=== PATIENT | male | born 1980 | race Caucasian/White ===

== ENCOUNTER 2023-03-11 10:54 | Inpatient (IN) | payer SELFPAY ==
[2023-03-11] VITALS (99 sets, daily range): BP systolic 118–244; BP diastolic 69–155; PULSE 74–110; RESP 0–29; TEMP 36.4–36.8; O2SAT 92–100; BMI 37.5
--- NOTE | 2023-03-11 11:19 | CT_ITS ---
WS: [id number] CT HEAD TECHNIQUE: Noncontrast CT of the head obtained from the skullbase to the vertex. CLINICAL INFORMATION: ams COMPARISON: None. DLP: 1143.[address] scans at [facility] use at least one of these dose optimization techniques: automated e xposure control; mA and/or kV adjustment per patient size (includes targeted exams where dose is matc hed to clinical indication); or iterative reconstruction. FINDINGS: No evidence of intracranial hemorrhage. Bilateral subcortical low-attenuation change in the parasagittal occipital white matter compatible with posterior reversible encephalopathy syndrome con sidering hypertensive symptoms. No significant mass effect or midline shift. No hydrocephalus. Mild mucosal thickening with a small amount of fluid in the ethmoid air cells. Visualized paranasal s inuses are otherwise well aerated. Small retention cyst LEFT maxillary sinus. Mastoid air cells are w ell aerated. Normal posterior nasopharynx. IMPRESSION: 1. Bilateral occipital subcortical low-attenuation change compatible with posterior reversible encep halopathy syndrome considering hypertension. Recommend follow-up with CT or MRI to ensure resolution. 2. No evidence of intracranial hemorrhage. 3. Mild ethmoid sinusitis. Notified Bennie Zacarias DO at 03/11/2023 11:58 AM.
--- NOTE | 2023-03-11 11:19 | XRR_ITS ---
PROCEDURE INFORMATION: Exam: XR Chest Exam date and time: 03/11/2023 11:35 AM Age: 42 years old Clinical indication: Patient HX: AMS. Cough. PT states he is unable to see.No history of trauma or recent surgery is provided. TECHNIQUE: Imaging protocol: Radiologic exam of the chest. 1image(s) are provided. Views: 1 view. COMPARISON: No relevant prior studies available. FINDINGS: Lungs: No lobar consolidation is appreciated. Pleural spaces: No pneumothorax or significant pleural effusion is appreciated. Heart/Mediastinum: The cardiomediastinal silhouette is upper normal. No cardiac decompensation is appreciated. Diaphragm: The hemidiaphragms are symmetric. Bones/joints: Osseous alignment is maintained.No displaced fracture or dislocation is appreciated. Soft tissues: No radiopaque foreign body or subcutaneous emphysema is appreciated. XR/XR chest 1V portable [id number] IMPRESSION: No lobar consolidation is appreciated.No acute cardiopulmonary changes are appreciated.
--- NOTE | 2023-03-11 11:21 | ECG_ITS ---
[facility] Test Date: 2023-03-11 Pat Name: Aleks Andre Sr Department: Room: Gender: Male [employer]: : 1980 Requested By: Bennie Zacarias Order Number: [id number] Kaitlin MD: Jeremi Vega M.D. Measurements Intervals Sherman Rate: 96 P: 45 WI: 124 QRS: 38 QRSD: 86 T: 64 QT: 374 QTc: 474 Interpretive Statements SINUS RHYTHM WITH OCCASIONAL VENTRICULAR PREMATURE COMPLEXES NONSPECIFIC T-WAVE ABNORMALITY No previous ECG available for comparison Electronically Signed On 03-11-2023 12:13:19 CDT by Jeremi Vega M.D. [id number]
--- NOTE | 2023-03-11 11:22 | ED_ITS ---
HPI - Altered Mental Status General: Chief Complaint: Altered Mental Status Stated Complaint: ams Time Seen by Provider: 03/11/23 11:01 Source: patient and EMS History of Present Illness: This patient provides limited information Kamryn but begins to open up more as we interact. He was transported by EMS from his home this morning. Allegedly when the children at home called EMS. He was found on the floor acting confused. He was initially somewhat reluctant to go EMS but they were able to coax him into coming to the hospital. He states to me that he has had body aches and chills and been in bed most of the weekend. He denies any known exposure to infectious disease. He states that he lives alone and shares custody of his 2 school-aged children with their mother. He also states that for some reason he cannot seem to see well right now. He denies any falls or head trauma. He states that he does feel depressed at times and feels like he cannot get out of bed on the weekends. He states that he has considered and thought about harming himself but has no specific plan and has not thought about that in the last few days. He denies alcohol. He takes no daily medications. He states he has history of using marijuana and sometimes uses on a daily basis. He states he has never been treated for mental health illness. He has no history of cardiovascular disease. He denies nausea vomiting diarrhea. He states he is thirsty. Associated symptoms: Reports depression Review of Systems Const: Reports: fever(s) and chills Eyes: Reports: change in vision ENMT: Denies: throat pain, odynophagia, nasal discharge or nasal congestion Card: Denies: chest pain, palpitations, irregular heart rhythm, edema, syncope or pre-syncope Resp: Denies: dyspnea, productive cough or non-productive cough GI: Denies: abdominal pain, nausea, vomiting or diarrhea : Denies: flank pain, difficulty urinating, dysuria or urinary frequency Skin/Breast: Denies: rash Neuro: Denies: headache(s), numbness in extremities or weakness in extremities Psych: Reports: depression, sleeping more, hopelessness and loss of interest Physical Exam Narrative: The patient is an overweight male lying comfortably in bed asking for something to drink. He has spontaneous eye opening and interacts in a very low voice somewhat contracted affect. Const: COMMON NORMALS: alert GENERAL APPEARANCE: cooperative NUTRITIONAL APPEARANCE: obese and overweight HENMT: COMMON NORMALS: normocephalic, atraumatic, Normal nasal mucous membran es and turbinates present and oropharynx normal HEAD & SCALP: normocephalic and atraumatic FACE & SINUS: normal facial exam and face symmetric NOSE: Normal nasal mucous membranes and turbinates present and Abnormal mucous membranes and turbinates present Eye: COMMON NORMALS: Equal, round and reactive pupils present, EOMs intact bilaterally and conjunctivae normal GENERAL EYE: appearance normal, both eyes and all related structures CONJUNCTIVA: Yes conjunctivae normal PUPIL: Yes Equal, round and reactive pupils present Neck/C-Spine: COMMON NORMALS: full ROM, no lymphadenopathy, no JVD and No carotid bruits Chest: COMMONS NORMALS: normal inspection of the chest Resp: COMMON NORMALS: normal respiratory effort and No use of accessory muscles EFFORT & INSPECTION: Yes able to speak in complete sentences and Yes symmetric chest movement AUSCULTATION: crackles Laterality: right Cardio: COMMON NORMALS: no JVD, regular rate, regular rhythm, No murmurs present (Cardio) and Peripheral pulses 2+ throughout RATE: regular rate RHYTHM: regular rhythm PERIPHERAL PULSES: Peripheral pulses 2+ throughout GI: COMMON NORMALS: Normal to inspection, nondistended, normoactive bowel mary nds present, Soft to palpation and non-tender PALPATION: Yes Soft to palp ation : COMMON NORMALS: Yes no CVA tenderness BLADDER/KIDNEY EXAM: Yes no CVA tenderness Back/Pelvis: COMMON NORMALS: no CVA tenderness, thoracic and lumbar spine normal to inspection, no thoracic nor lumbar tenderness and straight leg raise negative bilaterally Extremity: COMMON NORMALS: normal to inspection, full ROM, capillary refill normal, no calf tenderness and no pedal edema Neuro: COMMON NORMALS: moves all extremities, no focal motor deficits and no sensory deficits noted SENSORIUM/ORIENTATION: Yes alert SPEECH: speech normal Psych: COMMON NORMALS: mental status grossly normal SPEECH: Yes slow and Yes soft MOOD & AFFECT: Yes depressed mood and Yes constricted affect THOUGHT PROCESS: Circumstantial thought process present THOUGHT CONTENT: Yes Suicidality present INSIGHT: Fair insight present (Psych) JUDGEMENT: Fair judgement present (Psych) Skin: COMMON NORMALS: no rashes or lesions noted and no wounds GENERAL SKIN EXAM: no rashes or lesions noted Course Reevaluation(s): Reevaluation #1: We are initiating a nicardipine drip to help lower his blood pressure to treat his primary condition. The remainder of his work-up is ongoing to ensure that there is no other contributing comorbidities at this time. Time: 12:10 Consultations: Consultation #1: Discussed with Dr. Velázquez who will act as a events solutions consultant on the case. Time: 11:59 Vital Signs: Vital signs: Vital Signs Temperature 97.6 F 03/11/23 10:56 Pulse Rate 104 H 03/11/23 11:15 Respiratory Rate 20 H 03/11/23 11:15 Blood Pressure 197/146 03/11/23 11:15 Pulse Oximetry 97 03/11/23 11:15 Oxygen Delivery Me thod Room Air 03/11/23 11:15 MDM - Altered Mental Status Medical Decision Making This patient came from home with a history of being found confused on the floor of his home. On initial evaluation he complains of deviant diminished vision. He did have crackles in the left lung base but no other focal findings on his clinical examination. He is affect is constricted with depressive features and admitted depression without clear active suicidality. We will initiate work-up to ensure that there is no organic cause of his current presentation. My initial suspicion is this is severe depression but we certainly need to do due diligence to ensure that there is no evidence of toxic metabolic effects, stroke etc. infection as well as PRES syndrome with his elevated BP. CT scan confirmed suspicion of increased posterior cerebral edema consistent with press syndrome. We will initiate nicardipine drip and plan on ICU admission. Discussed with hospitalist as well as neurologist. Lab Data 03/11/23 11:00 03/11/23 11:00 Laboratory Results WBC 22.30 10^3/uL (3.29-11.43) H 03/11/23 11:00 RBC 6.34 10^6/uL (3.85-5.65) H 03/11/23 11:00 Hgb 19.30 g/dL (11.27-16.99) H 03/11/23 11:00 Hct 57.1 % (37-53) H 03/11/23 11:00 MCV 90.1 fl (82-101) 03/11/23 11:00 MCH 30.4 pg (27-33) 03/11/23 11:00 MCHC 33.8 g/dL (30-55) 03/11/23 11:00 RDW 13.0 % (12.1-15.1) 03/11/23 11:00 Plt Count 304 10^3/cmm (157-399) 03/11/23 11:00 MPV 11.3 fL (7.4-10.4) H 03/11/23 11:00 Neut % (Auto) 88.0 % 03/11/23 11:00 Lymph % (Auto) 7.7 % 03/11/23 11:00 [place] % (Auto) 1.9 % 03/11/23 11:00 Eos % (Auto) 0.3 % 03/11/23 11:00 Baso % (Auto) 0.5 % 03/11/23 11:00 Neut # (Auto) 19.63 10^3/uL (1.8-7.7) H 03/11/23 11:00 Lymph # (Auto) 1.7 10^3/uL (0.8-4.8) 03/11/23 11:00 [place] # (Auto) 0.4 10^3/uL (0.2-0.9) 03/11/23 11:00 Eos # (Auto) 0.1 10^3/uL (0.0-0.8) 03/11/23 11:00 Baso # (Auto) 0.1 10^3/uL (0.0-0.1) 03/11/23 11:00 Nucleated RBC % (auto) 0 % 03/11/23 11:00 Nucleated RBCs # 0.0 /100WBC 03/11/23 11:00 Sodium 135 mmol/L (136-145) L 03/11/23 11:00 Potassium 3.9 mmol/L (3.5-5.1) 03/11/23 11:00 Chloride 98 mmol/L (98-107) 03/11/23 11:00 Carbon Dioxide 18 mmol/L (22-29) L 03/11/23 11:00 Anion Gap 22.9 (5-19) H 03/11/23 11:00 BUN 11 mg/dL (6-20) 03/11/23 11:00 Creatinine 1.2 mg/dL (0.7-1.2) 03/11/23 11:00 GFR Calculation 67.1 mL/min (90-130) L 03/11/23 11:00 Glucose 216 mg/dL (65-115) H 03/11/23 11:00 Calculated Osmolality 286 mOsm/kg (285-295) 03/11/23 11:00 Calcium 9.6 mg/dL (8.5-10.5) 03/11/23 11:00 Total Bilirubin 0.5 mg/dL (0.15-1.2) 03/11/23 11:00 AST 69 U/L (0-40) H 03/11/23 11:00 ALT 94 U/L (0-41) H 03/11/23 11:00 Alkaline Phosphatase 101 U/L (40-130) 03/11/23 11:00 Total Protein 7.2 g/dL (6.6-8.7) 03/11/23 11:00 Albumin 4.8 g/dL (3.5-5.2) 03/11/23 11:00 Globulin 2.4 g/dL (1.3-4.6) 03/11/23 11:00 TSH 1.44 uIU/mL (0.27-4.20) 03/11/23 11:00 Salicylates 4.2 mg/dL (3-10) 03/11/23 11:00 Acetaminophen < 5.0 ug/mL (10-30) L 03/11/23 11:00 Ethyl Alcohol < 10 mg/dL (0-10) 03/11/23 11:00 All radiology interpretation(s) finalized by discharge EKG Data EKG 1: I personally reviewed and interpreted this EKG as follows: Interpretation: Resting EKG reveals ventricular rate of 96 bpm. Consistent with normal sinus rhythm. Occasional atrial premature contraction. ID interval, QRS duration, co rrected QT interval normal. [place] normal. No acute ST-T wave changes noted at this time. No prior tracing for comparison Discharge Plan Discharge Patient Disposition: Admitted As Inpatient Clinical Impression: PRES (posterior reversible encephalopathy syndrome) Condition: Stable Coding Level of Care Code ED Yarn Twister for Francois Ruiz
[2023-03-11 11:50] LABS: Basophils # 0.1 10^3/uL (0.0-0.1); Basophils % 0.5 %; Eosinophils # 0.1 10^3/uL (0.0-0.8); Eosinophils % 0.3 %; Hematocrit 57.1 % (37-53); Lymphocytes # 1.7 10^3/uL (0.8-4.8); Lymphocytes % 7.7 %; Mean Corpuscular HGB Conc 33.8 g/dL (30-55); Mean Corpuscular Hemoglobin 30.4 pg (27-33); Mean Corpuscular Volume 90.1 fl (82-101); Mean Platelet Volume 11.3 fL (7.4-10.4); Monocytes # 0.4 10^3/uL (0.2-0.9); Monocytes % 1.9 %; Neutrophils # 19.63 10^3/uL (1.8-7.7); Nucleated Red Blood Cells % 0 %; Platelet Count 304 10^3/cmm (157-399); Red Blood Count 6.34 10^6/uL (3.85-5.65)
[2023-03-11] MEDS: sodium chloride 0.9% 1,000 ML 999 ML IV (11:53)
[2023-03-11 12:07] LABS: Acetaminophen < 5.0 ug/mL (10-30); Alanine Aminotransferase 94 U/L (0-41); Albumin Level 4.8 g/dL (3.5-5.2); Alcohol Level < 10 mg/dL (0-10); Alkaline Phosphatase 101 U/L (40-130); Anion Gap 22.9 (5-19); Aspartate Amino Transferase 69 U/L (0-40); Blood Urea Nitrogen 11 mg/dL (6-20); Calcium 9.6 mg/dL (8.5-10.5); Carbon Dioxide 18 mmol/L (22-29); Chloride 98 mmol/L (98-107); Globulin 2.4 g/dL (1.3-4.6); Glomerular Filtration Rate 67.1 mL/min (90-130); Glucose 216 mg/dL (65-115); Osmolality Calculated 286 mOsm/kg (285-295); Potassium 3.9 mmol/L (3.5-5.1); Salicylate 4.2 mg/dL (3-10); Sodium 135 mmol/L (136-145); Thyroid Stimulating Hormone 1.44 uIU/mL (0.27-4.20); Total Bilirubin 0.5 mg/dL (0.15-1.2); Total Protein 7.2 g/dL (6.6-8.7)
--- NOTE | 2023-03-11 12:08 | MR_ITS ---
WS: [id number] MRI BRAIN WITHOUT CONTRAST HISTORY: PRES COMPARISON: Noncontrast CT head 03/11/2023 TECHNIQUE: Diffusion imaging, multiplanar T1, T2 and FLAIR imaging obtained. Diffusion imaging is normal. Bilateral cortical and subcortical T2 and FLAIR signal hyperintensities are reidentified predominantl y in the occipital and parietal lobes but also extending into the cerebellum bilaterally with multipl e patchy white matter lesions. No associated hemorrhage or diffusion abnormalities. Ventricles and extra-axial spaces are normal. No inferior displacement of cerebellar tonsils. The sella turcica and pituitary gland are unremarkabl e. Dural venous sinuses and [place] demonstrate no abnormality on this unenhanced studies. Paranasal sinuses: Very tiny air-fluid levels in the maxillary sinuses. Otherwise sinuses are clear. Mastoid air cells: Normal. Calvarium and scalp: Intact. IMPRESSION: 1. No diffusion abnormality. 2. Diffuse bilateral parieto-occipital and cerebellar hyperintensities. Consistent with acute hypert ensive encephalopathy/PRES. corresponds with the CT findings. 3. No hemorrhage.
--- NOTE | 2023-03-11 12:08 | PC.PHAR ---
pt states he takes no rx medications-pt states the only otc med hes been taking is excedrin migraine prn pt states took about 8 tabs over the weekend
[2023-03-11] MEDS: nicardipine 20 MG/200 ML PREMIX 50 MG IV (12:20)
[2023-03-11 12:23] LABS: Influenza A by IFA negative (Negative); Influenza B by IFA negative (Negative); Lactic Sepsis W/Reflex 3.3 mmol/L (0.5-2.2); SARS Covid-2 Antigen negative (Negative)
[2023-03-11 12:26] LABS: ABG PCO2 36.4 mmHg (35-45); ABG PH Result 7.39 (7.35-7.45); Alveolar-Arterial Oxygen Gradi 4.7 mmHg (5-10); Arterial Blood Gas Hematocrit 56.9 % (42-52); Base Excess ABG -2.4 mmol/L (-2.0-2.0); Blood Gas Allen Test Pos; Blood Gas Operator Identificat CAK; Blood Gas Sample Site Radial, left; Blood Gas Sample Type Arterial; HCO3 ABG 21.9 mmol/L (22-26); HGB O2 Sat 93.5 % (95-100); Ionized Calcium Level - ABG 1.2 mmol/L (1.1-1.4); Methemoglobin 0.3 % (0.4-1.5); Oxygen Device ROOM AIR; Oxygen Saturation ABG 94.7; PO2 ABG 68.9 mmHg (80.0-100.0); Potassium Level - ABG 3.7 mmol/L (3.5-5.0); Total Hemoglobin 18.6 g/dL (14-18)
[2023-03-11] MEDS: carvedilol 6.25 mg Tablet PO ×2 (12:27→17:50)
[2023-03-11] MEDS: amlodipine 10 mg Tablet PO (12:27)
[2023-03-11 12:55] LABS: Procalcitonin 0.16 ng/mL (0-0.5)
[2023-03-11] MEDS: hyDRALAzine 50 mg Tablet PO ×2 (13:22→20:45)
[2023-03-11 13:44] LABS: Reflex Lactate Order REFLEX LACTIC ORDERD
--- NOTE | 2023-03-11 14:01 | PC.NURSE ---
Addendum entered by Leela Lockwood RN 03/11/23 14:02: TRANSFER WAS AT 1330 Original Note: PATIENT TRANSPORTED TO MRI WITH MONITORS ATTACHED WITH RN.
--- NOTE | 2023-03-11 14:03 | PC.NURSE ---
SEEN SCANNED DOCUMENTS FOR VITALS.
[2023-03-11] MEDS: sodium chloride 0.9% 1,000 ML 75 ML IV (14:29)
[2023-03-11] MEDS: heparin 5,000 unit/mL INJ 1 mL 5000 UNIT SUBCUT (15:03)
[2023-03-11 15:04] LABS: Iron 91 ug/dL (59-158); Percent Saturation 22.9 % (20-50); Total Iron Binding Capacity 397 mcg/dl; Unsaturated Iron Binding 306 ug/dL (112-347)
[2023-03-11] MEDS: losartan 50 mg Tablet 100 MG PO (15:06)
[2023-03-11 15:20] LABS: Vitamin B12 440 pg/mL (232-1245)
[2023-03-11] MEDS: nicardipine 20 MG/200 ML PREMIX 100 MG IV (15:38)
[2023-03-11 15:53] LABS: Lactic Acid level (Lactate) 2.1 mmol/L (0.5-2.2)
[2023-03-11 16:16] LABS: Amphetamines Screen Urine Positive (Negative); Barbiturates Screen Urine Negative (Negative); Benzodiazepines Screen Urine Negative (Negative); Cocaine Screen Urine Negative (Negative); Opiate Screen Urine Negative (Negative); PCP Screen Urine Negative (Negative); THC Screen Urine Positive (Negative)
[2023-03-11 16:18] LABS: Add Urine Culture? Yes; Add Urine Microscopic? YES; Bacteria Urine TRACE /hpf; Bilirubin Urine Neg (Negative); Blood Urine Neg (Negative); Glucose Urine UA Norm (Normal); Ketones Urine Negative (Negative); Leukocyte Esterase Urine Negative (Negative); Mucus Urine 4+ /hpf; Nitrate Urine Negative (Negative); Protein Urine 3+ (Negative); RBC Urine 0-4 /hpf (0-2); Specific Gravity, Urine 1.025 (1.005-1.030); Sperm Urine 1+ /hpf; Squamous Epithelial Cell Urine 0-4 /hpf (0-5); Urine Appearance SL Hazy (CLEAR); Urine Color Yellow (Yellow); Urobilinogen Urine Norm (Negative); WBC Urine 15-25 /hpf (0-5); pH Urine 5 (5-7)
--- NOTE | 2023-03-11 17:16 | PM.HP ---
Providers/Chief Complaint Admitting Physician: Jaren Camarena MD Primary Care Provider: NOHEMI Pepper Chief Complaint: ams History of Present Illness Aleks Andre Sr is a 42 year old male with no significant past medical history and surgical history, chronic smoker who was brought into the ER today via EMS who were called by his children as he was found down on floor being confused. On presentation to the ER he was found to have a systolic blood pressure of more than 250 and given altered mental status CT head was done which showed concerns for press syndrome hence internal medicine was consulted. On examination patient lying comfortably in bed in ER with family at bedside. He states he works at the [employer] daily. He was at his baseline health till Saturday. Since Saturday morning he has been getting more confused, feeling more depressed, feeling foggy in his brain with concerns for blurry vision since yesterday evening. He states he does not follow-up with any primary care provider has not checked his blood pressure in a long time. He is complaining of headache almost 2 times a week for which he takes Excedrin. Headache is mostly global. Not not associated with nausea or vomiting mostly but did have nausea and few episodes of vomiting few days ago which he thought is secondary to the [place] food he ate lately. (During that time his children were also not feeling well after eating the same food). ER course: Patient was started on nicardipine drip after CT head results. Have requested patient to be given carvedilol 6.25 mg, amlodipine 10 mg and get MRI head with and without contrast. Review of Systems General: Reports: 10 or more systems reviewed and unremarkable except in HPI and below Const: Denies: fever(s), chills, body aches, change in appetite, change in weight, malaise, night sweats, diaphoresis, change in sleep pattern, daytime sleepiness or snoring Eyes: Denies: change in vision, blurry vision, photophobia, eye discomfort or eye discharge ENMT: Denies: throat pain, enlarged tonsils, hoarseness, mouth pain, oral sores, dry mouth, tinnitus, nasal congestion or post nasal drip Card: Denies: chest pain, palpitations, irregular heart rhythm, edema, swelling of feet/ankles, lightheadedness, syncope, pre-syncope, dyspnea on exertion, orthopnea, leg pain with exertion or acrocyanosis Resp: Denies: dyspnea, productive cough, non-productive cough, wheezing, stridor, pain on inspiration, change in phlegm color, hemoptysis or chest congestion GI: Denies: abdominal pain, nausea, vomiting, hematemesis, coffee ground emesis, dysphagia, heartburn, diarrhea, constipation, bloating, GI cramping, change in bowel habits, pain on defecation, hematochezia or melena : Denies: flank pain, difficulty urinating, dysuria, urinary frequency, urinary urgency, urinary hesitancy, urinary dribbling, difficulty starting urination, change in urine stream, nocturia or hematuria Musc: Denies: neck pain, back pain, extremity pain, joint pain, joint swelling, joint redness, joint stiffness or limited range of motion Neuro: Denies: headache(s), numbness in extremities, weakness in extremities, sensory changes, lack of coordination, difficulty walking, frequent falls, dizziness, vertigo, confusion, Slurred speech present, difficulty communicating thoughts or seizure-like activity Psych: Denies: anxiety, depression, mood swings, panic attacks, hopelessness or irritability Endo: Denies: polyuria, polydipsia, tired all the time, cold intolerance, excessive sweating, flushing or heat intolerance Jeremías/Lymph: Denies: easy bruising or easy bleeding All/Imm: Denies: tongue swelling, facial swelling or acute wheezing Medications/Allergies Home Medications Medication Instructions Recorded Confirmed Last Taken Type [id number] 250 2 tab PO Q6H PRN Pain 03/11/23 03/11/23 03/10/23 History mg-250 mg-65 mg tablet (Excedrin Migraine) Allergies Allergy/AdvReac Type Severity Reaction Status Date / Time amoxicillin [From Augmentin] Allergy Unknown Verified 03/11/23 11:00 clavulanic acid Allergy Unknown Verified 03/11/23 11:00 [From Augmentin] Penicillins Allergy Unknown Verified 03/11/23 11:00 PFSH Acute PFSH: Medical History (Updated 03/11/23 @ 17:24 by Jaren Camarena MD) No pertinent past medical history Surgical History (Updated 03/11/23 @ 17:24 by Jaren Camarena MD) No pertinent past surgical history Family History (Updated 03/11/23 @ 17:24 by Jaren Camarena MD) Other Hypertension Social History (Updated 03/11/23 @ 17:25 by Jaren Camarena MD) Smoking and tobacco status: current every day smoker cigarettes Packs smoked per day: 2 Years cigarettes smoked: 20 Alcohol intake: never Adopted: No Caregiver/support person: Yes Lives independently: Yes Household members: children Housing: House Marital status: Current occupational status: employed Vitals/I&O/Wt Last Vital Signs Temp 98.3 F 03/11/23 15:00 Pulse 86 03/11/23 17:00 Resp 14 03/11/23 17:00 BP 172/83 03/11/23 17:00 Pulse Ox 95 03/11/23 17:00 O2 Del Method Room Air 03/11/23 17:00 03/11/23 03/11/23 03/11/23 06:59 14:59 22:59 Intake Total 50 / 50 1151.667 / 1201.667 Output Total 450 / 450 Balance 50 / 50 701.667 / 751.667 Weight last 48 hrs Weight 136.078 kg Physical Exam Narrative: General: No acute distress, AO x3, flat affect, not making eye contact, tearful HEENT: PERRLA, pupils bilaterally equal and reactive Chest: Normal vesicular breath sounds, no added sounds, equal good air entry bilaterally CVS: S1-S2 regular, no murmurs, no tachycardia, S4 heard, no gallops, no rubs Abdomen: Soft, nontender, no organomegaly, bowel sounds present Neuro: No focal deficits, no facial deformity, AO x3, power 5/5 in all limbs Psych: COMMON NORMALS: mental status grossly normal, cooperative, denies hallucinations, denies homicidal ideation and denies suicidal ideation MOOD & AFFECT: Yes depressed mood, Yes tearful and Yes Flat affect present THOUGHT PROCESS: No confused Data 03/11/23 11:00 03/11/23 11:00 A&P Assessment and plan (1) PRES (posterior reversible encephalopathy syndrome): (2) Hypertension: (3) Headache: (4) Blurry vision, bilateral: (5) Depression: (6) Obesity: Plan 42-year-old gentleman with no signal past medical history presents with feeling weak, blurry vision and headaches found to have blood pressure of more than 250 systolic and diagnosed of possible press syndrome on CT head in the ER. Hypertensive urgency/press syndrome: Diagnosed in the ER on CT head. MRI head with and without contrast. Presenting blood pressure 250 systolic. Goal blood pressure of around 180 systolic for now. Wean nicardipine drip as per goal blood pressure. For now start on amlodipine 10 mg, Coreg 6.25 twice daily, hydralazine 50 mg every 8 hourly, losartan 100 mg daily. Will uptitrate as per goal blood pressures. We will try to wean nicardipine drip as per goal blood pressures. Check urine drug screen, echocardiogram. Check A1c, lipid panel, TSH, vitamin B12, folate level. Blurry vision: Most likely in setting of hypertensive urgency. Will control blood pressures. If patient continues to have the symptoms after blood pressure is better controlled we will plan for CTA head and neck. For now start patient on baby aspirin 81 mg daily. Depression: Denies any suicidal ideation. We will consult psychiatry for further evaluation and management. For now start patient on Lexapro 20 mg daily. Obesity Heparin 5000 every 12 hourly for DVT prophylaxis Cardiac diet Famotidine for PUD prophylaxis. Attestations Medical Necessity Statement*: Admission for more than 2 midnights to ICU for further evaluation and management of encephalopathy in setting of hypertensive urgency leading to press syndrome, severe depression Coding Level of Care Code Critical Care >/= 30 minutes Critical care time (in minutes): 80 The high probability of a clinically significant, sudden or life threatening deterioration, as referenced in this documentation, required my full and direct attention, intervention and personal management. The critical care time shown is in addition to time spent performing any reported separately billable procedures and includes the following: [x] Data and vital sign review and interpretation [x] Patient assessment, examination and intervention [x] Medication orders and management [x] Patient/Family updates as able [x] Care Coordination and Documentation. Diagnoses PRES (posterior reversible encephalopathy syndrome) I67.83 Hypertension I10 Headache R51.9 Blurry vision, bilateral H53.8 Depression F32.A Obesity E66.9
[2023-03-11] MEDS: famotidine 20 mg Tablet PO (17:50)
[2023-03-11] MEDS: nicardipine 20 MG/200 ML PREMIX 25 MG IV (20:45)
[2023-03-11] MEDS: ALPRAZolam 0.5 mg Tablet PO (20:51)
[2023-03-12] VITALS (141 sets, daily range): BP systolic 97–205; BP diastolic 56–141; PULSE 68–112; RESP 6–30; O2SAT 91–98
[2023-03-12] MEDS: sodium chloride 0.9% 1,000 ML 75 ML IV (01:39)
[2023-03-12] MEDS: heparin 5,000 unit/mL INJ 1 mL 5000 UNIT SUBCUT ×2 (01:39→15:41)
[2023-03-12] MEDS: nicardipine 20 MG/200 ML PREMIX 100 MG IV (03:26)
[2023-03-12 05:14] LABS: Basophils # 0.1 10^3/uL (0.0-0.1); Basophils % 0.5 %; Eosinophils # 0.1 10^3/uL (0.0-0.8); Eosinophils % 0.6 %; Lymphocytes % 22.8 %; Mean Corpuscular HGB Conc 33.4 g/dL (30-55); Mean Corpuscular Hemoglobin 30.7 pg (27-33); Mean Corpuscular Volume 91.9 fl (82-101); Mean Platelet Volume 11.2 fL (7.4-10.4); Monocytes # 1.5 10^3/uL (0.2-0.9); Monocytes % 8.8 %; Neutrophils # 11.72 10^3/uL (1.8-7.7); Neutrophils % 66.8 %; Nucleated Red Blood Cells % 0 %; Platelet Count 237 10^3/cmm (157-399); Red Blood Count 5.77 10^6/uL (3.85-5.65); Red Cell Distribution Width 13.4 % (12.1-15.1); White Blood Count 17.52 10^3/uL (3.29-11.43)
[2023-03-12 05:19] LABS: Estmated Average Glucose 100; Hemoglobin A1C 5.1 % (4.0-6.0)
[2023-03-12 05:32] LABS: Alanine Aminotransferase 66 U/L (0-41); Albumin Level 3.9 g/dL (3.5-5.2); Alkaline Phosphatase 80 U/L (40-130); Anion Gap 15.9 (5-19); Aspartate Amino Transferase 51 U/L (0-40); Blood Urea Nitrogen 15 mg/dL (6-20); Carbon Dioxide 22 mmol/L (22-29); Chloride 106 mmol/L (98-107); Cholesterol 259 mg/dL (0-200); Globulin 2.8 g/dL (1.3-4.6); Glomerular Filtration Rate 93.5 mL/min (90-130); Glucose 99 mg/dL (65-115); HDL Cholesterol 35 mg/dL (60-100); LDL Cholesterol Calculated 175 mg/dL (50-129); Magnesium 2.2 mg/dL (1.7-2.3); Osmolality Calculated 291 mOsm/kg (285-295); Phosphorus 2.3 mg/dL (2.5-4.5); Potassium 3.9 mmol/L (3.5-5.1); Sodium 140 mmol/L (136-145); Total Bilirubin 0.7 mg/dL (0.15-1.2); Total Protein 6.7 g/dL (6.6-8.7); Triglycerides 243 mg/dL (0-150)
[2023-03-12] MEDS: nicardipine 20 MG/200 ML PREMIX 75 MG IV ×2 (06:13→12:12)
[2023-03-12 06:14] LABS: Folate Level 17.4 ng/mL (4.5-32.2)
[2023-03-12] MEDS: nicardipine 20 MG/200 ML PREMIX 50 MG IV ×3 (08:39→19:34)
--- NOTE | 2023-03-12 09:44 | PC.NURSE ---
Refusing medications Patient's states, I'm just laying here and would like to go home. This is stupid. I'll take the meds when I am ready. I just don't understand why I have to be here . Patient arguing with his mother that is in the room trying to get the patient to take his medications. Patient tells his mother, I am 42 fucking years old and can do what I want . Patient's mother left room crying. Patient is ignoring the nurse and pretending to be asleep. Dr. Camarena notified.
--- NOTE | 2023-03-12 10:24 | PC.NURSE ---
Dr. Camarena in room explaining to patient the risk for stroke, NH, , if patient goes home AMA. Patient wanting to go home. Mother in room. Order for xanax increased to TID.
[2023-03-12] MEDS: ALPRAZolam 0.5 mg Tablet 1 MG PO ×2 (10:36→20:11)
[2023-03-12] MEDS: isosorbide mononitrate ER 60 mg Tablet PO (10:37)
[2023-03-12] MEDS: amlodipine 10 mg Tablet PO (10:37)
[2023-03-12] MEDS: chlorthalidone 25 mg Tablet PO (10:37)
[2023-03-12] MEDS: hyDRALAzine 50 mg Tablet 100 MG PO ×3 (10:37→20:11)
[2023-03-12] MEDS: aspirin 81 mg EC Tablet PO (10:38)
[2023-03-12] MEDS: losartan 50 mg Tablet 100 MG PO (10:38)
[2023-03-12] MEDS: escitalopram 10 mg Tablet 20 MG PO (10:38)
[2023-03-12] MEDS: famotidine 20 mg Tablet PO ×2 (10:39→18:39)
[2023-03-12] MEDS: nicotine 14 mg Patch 1 PATCH TRANSDERMA (10:39)
[2023-03-12] MEDS: carvedilol 6.25 mg Tablet PO ×2 (10:39→18:40)
--- NOTE | 2023-03-12 11:54 | P.PN_ITS ---
Subjective Subjective: No acute events overnight. Patient currently remains on nicardipine drip running at 24 though blood pressures are in better range now with systolic of 150 today morning. Patient today morning refuses oral medications and on examination was slightly agitated and wanted to go home. We discussed that patient needs better blood pressure control and up titration of medication which needs to be gradual to prevent related shocklike symptoms. Also discussed that if he is to leave there is a higher risk of stroke, AL or hemorrhagic stroke. Patient states he is agreeable for treatment for now. Denies any nausea, vomiting. States blurry vision is better. Appreciate blood work and vitals. Remains on room air. Vitals/I&O/Wt Last Vital Signs Temp 98.3 F 03/11/23 15:00 Pulse 75 03/12/23 08:30 Resp 17 03/12/23 08:30 BP 165/80 03/12/23 10:38 Pulse Ox 94 03/12/23 08:30 O2 Del Method Room Air 03/12/23 08:30 03/11/23 03/12/23 03/12/23 22:59 06:59 14:59 Intake Total 1557.500 / 7693.226 0795.334 / 2759.834 219.167 / 219.167 Output Total 800 / 800 600 / 1400 450 / 450 Balance 757.500 / 807.500 552.334 / 1359.834 -230.833 / -230.833 Weight last 48 hrs Weight 136.078 kg Physical Exam Narrative: General: No acute distress, AO x3, flat affect, not making eye contact, tearful HEENT: PERRLA, pupils bilaterally equal and reactive Chest: Normal vesicular breath sounds, no added sounds, equal good air entry bilaterally CVS: S1-S2 regular, no murmurs, no tachycardia, S4 heard, no gallops, no rubs Abdomen: Soft, nontender, no organomegaly, bowel sounds present Neuro: No focal deficits, no facial deformity, AO x3, power 5/5 in all limbs Psych: COMMON NORMALS: mental status grossly normal, cooperative, denies hallucinations, denies homicidal ideation and denies suicidal ideation MOOD & AFFECT: Yes depressed mood, Yes tearful and Yes Flat affect present THOUGHT P ROCESS: No confused Data 03/12/23 04:30 10/03/23 04:30 A&P Assessment and plan (1) PRES (posterior reversible encephalopathy syndrome): (2) Hypertension: (3) Headache: (4) Blurry vision, bilateral: (5) Depression: (6) Obesity: (7) Amphetamine abuse: (8) Leukocytosis: Infectious cause unlikely. Do not have baseline. Does have elevated hemoglobin level as well though platelet counts within normal limits. Given high body mass index skin multiple blood in setting of obstructive sleep apnea. Check peripheral smear, erythropoietin level, JAK2 with reflex (9) Hyperlipidemia: (10) Polycythemia: Plan 42-year-old gentleman with no signal past medical history presents with feeling weak, blurry vision and headaches found to have blood pressure of more than 250 systolic and diagnosed of possible press syndrome on CT head in the ER. Hypertensive urgency/press syndrome: Appreciate MRI head results. Presenting blood pressure 250 systolic. Goal blood pressure of around 140 mmHg. Wean nicardipine drip as per goal blood pressure. Continue with amlodipine 10 mg, Coreg 6.25 twice daily, hydralazine 100 mg 3 times daily, losartan 100 mg daily. Will add chlorthalidone 25 mg daily, Imdur 60 mg oral daily. If needed will add chlorthalidone. Uptitrate medications as for goal blood pressure. We will try to wean nicardipine drip. Uncontrolled severe hypertension most likely in setting of chronic amphetamine abuse. Cannot rule out secondary causes of hypertension. Will try for renal Doppler ultrasound. Pheochromocytoma low likelihood for now. Echocardiogram results awaited. Appreciate A1c, TSH and lipid panel. Amphetamine abuse: Patient states he uses amphetamine very frequently. Slight withdrawal right now. Start on Xanax 1 mg p.o. 3 times daily as needed. Counseled patient against continuation of use of amphetamine and encouraged cessation. Blurry vision: Most likely in setting of hypertensive urgency. Resolving. Given high blood pressure, hyperlipidemia will start on baby aspirin 81 mg daily. Depression: Denies any suicidal ideation. Appreciate psych evaluation. For now continue with Lexapro 20 mg daily. Obesity Heparin 5000 every 12 hourly for DVT prophylaxis Cardiac diet Famotidine for PUD prophylaxis. Patient today morning refuses oral medications and on examination was slightly agitated and wanted to go home. We discussed that patient needs better blood pressure control and up titration of medication which needs to be gradual to prevent related shocklike symptoms. Also discussed that if he is to leave there is a higher risk of stroke, AL or hemorrhagic stroke. Patient states he is agreeable for treatment for now. Attestations Medical Necessity Statement*: Requires further hospitalization for management of hypertensive urgency leading to press syndrome while patient is on nicardipine drip and his oral antihypertensives are uptitrated and adjusted, Coding Level of Care Code Acute Code for [facility] Fwd Diagnoses PRES (posterior reversible encephalopathy syndrome) I67.83 Hypertension I10 Headache R51.9 Blurry vision, bilateral H53.8 Depression F32.A Obesity E66.9 Amphetamine abuse F15.10 Leukocytosis D72.829 Hyperlipidemia E78.5 Polycythemia D75.1
[2023-03-12 11:56] LABS: LAB Peripheral Smear Sent for Review
[2023-03-12 12:39] LABS: Reticulocyte % 2.2 % (0.5-2.0)
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
[2023-03-12] MEDS: atorvastatin 40 mg Tablet 80 MG PO (20:11)
[2023-03-13] VITALS (106 sets, daily range): BP systolic 111–184; BP diastolic 51–114; PULSE 61–116; RESP 16–42; TEMP 36.6–36.8; O2SAT 84–98
[2023-03-13] MEDS: heparin 5,000 unit/mL INJ 1 mL 5000 UNIT SUBCUT ×2 (01:52→15:18)
[2023-03-13 06:12] LABS: Basophils # 0.1 10^3/uL (0.0-0.1); Basophils % 0.8 %; Eosinophils # 0.1 10^3/uL (0.0-0.8); Eosinophils % 0.7 %; Hematocrit 49.4 % (37-53); Lymphocytes # 3.2 10^3/uL (0.8-4.8); Lymphocytes % 25.4 %; Mean Corpuscular HGB Conc 32.6 g/dL (30-55); Mean Corpuscular Hemoglobin 30.1 pg (27-33); Mean Corpuscular Volume 92.3 fl (82-101); Monocytes # 1.2 10^3/uL (0.2-0.9); Monocytes % 9.1 %; Neutrophils # 8.07 10^3/uL (1.8-7.7); Neutrophils % 63.7 %; Nucleated Red Blood Cells % 0 %; Platelet Count 238 10^3/cmm (157-399); Red Blood Count 5.35 10^6/uL (3.85-5.65); Red Cell Distribution Width 13.5 % (12.1-15.1); White Blood Count 12.67 10^3/uL (3.29-11.43)
[2023-03-13 06:29] LABS: Alanine Aminotransferase 55 U/L (0-41); Albumin Level 3.9 g/dL (3.5-5.2); Alkaline Phosphatase 66 U/L (40-130); Aspartate Amino Transferase 49 U/L (0-40); Blood Urea Nitrogen 17 mg/dL (6-20); Calcium 9.2 mg/dL (8.5-10.5); Carbon Dioxide 24 mmol/L (22-29); Chloride 104 mmol/L (98-107); Creatinine Clr Calc Pharmacy 149.8267; Globulin 2.7 g/dL (1.3-4.6); Glomerular Filtration Rate 82.8 mL/min (90-130); Glucose 105 mg/dL (65-115); Osmolality Calculated 290 mOsm/kg (285-295); Sodium 139 mmol/L (136-145); Total Bilirubin 0.8 mg/dL (0.15-1.2); Total Protein 6.6 g/dL (6.6-8.7)
[2023-03-13] MEDS: carvedilol 6.25 mg Tablet PO ×2 (08:13→17:32)
[2023-03-13] MEDS: escitalopram 10 mg Tablet 20 MG PO (08:13)
[2023-03-13] MEDS: famotidine 20 mg Tablet PO ×2 (08:13→17:32)
[2023-03-13] MEDS: hyDRALAzine 50 mg Tablet 100 MG PO (08:13)
[2023-03-13] MEDS: amlodipine 10 mg Tablet PO (08:14)
[2023-03-13] MEDS: isosorbide mononitrate ER 60 mg Tablet PO (08:14)
[2023-03-13] MEDS: losartan 50 mg Tablet 100 MG PO (08:14)
[2023-03-13] MEDS: chlorthalidone 25 mg Tablet PO (08:14)
[2023-03-13] MEDS: aspirin 81 mg EC Tablet PO (08:14)
[2023-03-13 10:37] LABS: Glucose Point of Care 120 mg/dL (70-110)
--- NOTE | 2023-03-13 11:55 | PC.NURSE ---
report given to Leobardo COLE in [facility]. Hand off report sheet included in physical chart.
--- NOTE | 2023-03-13 12:02 | USCV_ITS ---
Thai Aleks Mason Age: 42 Gender: M : 1980 Exam Date: 03/13/2023 08:28 Ordering Phys: Jaren Camarena MD Technologist: CT Exam Location: [facility] [place] Indication: hypertension Aortic Velocity @ SMA (cm/s) 87.6 RIGHT KIDNEY LEFT KIDNEY Velocity (cm/s) Velocity (cm/s) Sys/Blank Sys/Blank Resistive Index Resistive Index / Proximal Renal Artery 75.1 / 24.4 0.68 52.9 / 14.8 0.72 Mid Renal Artery 98.6 / 34.2 0.65 51.8 / 22.2 0.57 Distal Renal Artery 95.7 / 29.0 0.70 72.8 / 30.2 0.59 Hilar 89.4 / 34.0 0.62 73.4 / 31.8 0.57 Upper Pole 44.3 / 18.8 0.58 43.7 / 19.8 0.55 Mid Pole 42.0 / 14.3 0.66 69.2 / 33.7 0.51 Lower Pole 24.0 / 9.2 0.62 0.60 Renal Aortic Ratio 1.13 Accleration Index (cm/sec2) 1136.0 Hilar 910.00 0 879.00 Upper Pole 818.00 687.00 Mid Pole 523.00 761.00 Lower Pole 320.00 109.0 Kidney Length (mm) 120.8 FINDINGS no ELIEZER identified Limited exam due to body habitus CONCLUSIONS Normal renal arterial Doppler velocities and indices. No significant renal artery stenosis No hydronephrosis in either kidney Limited exam due to body habitus Renal ostia not well visualized Ancelmo Sibley MD (Electronically Signed) Final Date: 13 March 2023 10:24 S
--- NOTE | 2023-03-13 12:26 | P.PN_ITS ---
Subjective Subjective: No acute events overnight. Nitro drip was discontinued yesterday. Blood pressures have been better controlled. Today morning examination seen with mother at bedside. On getting to the room he is sleeping but is awake and alert on waking up. He is able to have complete conversation. Continues to have a flat affect. States his vision has improved and is back to normal. Denies any nausea, vomiting, headache or chest pain. Remains on room air. States he is feeling weak. Blood work appreciated for improvement in leukocytosis down to 12.6, stable hemoglobin of 16, creatinine of 1 on CMP with stable electrolytes Vitals/I&O/Wt Last Vital Signs Temp 98.3 F 03/13/23 08:35 Pulse 69 03/13/23 09:25 Resp 21 H 03/13/23 09:25 BP 111/51 03/13/23 09:25 Pulse Ox 94 03/13/23 09:15 O2 Del Method Room Air 03/13/23 08:35 03/12/23 03/13/23 03/13/23 22:59 06:59 14:59 Intake Total 215.334 / 1291.584 Output Total 400 / 1150 500 / 1650 525 / 525 Balance -184.666 / 141.584 -500 / -358.416 -525 / -525 Weight last 48 hrs Weight 142.938 kg Physical Exam Narrative: General: No acute distress, AO x3, flat affect, HEENT: PERRLA, pupils bilaterally equal and reactive Chest: Normal vesicular breath sounds, no added sounds, equal good air entry bilaterally CVS: S1-S2 regular, no murmurs, no tachycardia, S4 heard, no gallops, no rubs Abdomen: Soft, nontender, no organomegaly, bowel sounds present Neuro: No focal deficits, no facial deformity, AO x3, power 5/5 in all limbs Psych: COMMON NORMALS: mental status grossly normal, cooperative, denies hallucinations, denies homicidal ideation and denies suicidal ideation MOOD & AFFECT: Yes depressed mood, Yes tearful and Yes Flat affect present THOUGHT PROCESS: No confused Data 03/13/23 05:33 03/13/23 05:33 Micro: Microbiology 03/11/23 15:50 Urine Culture - Preliminary Urine,Clean Catch A&P Assessment and plan (1) PRES (posterior reversible encephalopathy syndrome): (2) Hypertension: (3) Headache: (4) Blurry vision, bilateral: (5) Depression: (6) Obesity: (7) Amphetamine abuse: (8) Leukocytosis: Infectious cause unlikely. Do not have baseline. Does have elevated hemoglobin level as well though platelet counts within normal limits. Given high body mass index skin multiple blood in setting of obstructive sleep apnea. Check peripheral smear, erythropoietin level, JAK2 with reflex (9) Hyperlipidemia: (10) Polycythemia: Plan 42-year-old gentleman with no signal past medical history presents with feeling weak, blurry vision and headaches found to have blood pressure of more than 250 systolic and diagnosed of possible press syndrome on CT head in the ER. Hypertensive urgency/press syndrome: Hypertensive urgency resolved. Symptomatically press syndrome seems to be resolving. Appreciate MRI head results. Presenting blood pressure 250 systolic. Goal blood pressure of around 140 mmHg. Nicardipine drip weaned off. Continue with amlodipine 10 mg, Coreg 6.25 twice daily, decrease hydralazine 50 mg 3 times daily, losartan 100 mg daily, chlorthalidone to 12.5 mg daily, Imdur 60 mg oral daily. Monitor renal functions. So far stable. Uncontrolled severe hypertension most likely in setting of chronic amphetamine abuse. Cannot rule out secondary causes of hypertension. Renal ultrasound reported normal. Pheochromocytoma low likelihood for now. Echocardiogram results awaited. Appreciate A1c, TSH and lipid panel. Amphetamine abuse: Patient states he uses amphetamine very frequently. Slight withdrawal right now. Start on Xanax 1 mg p.o. 3 times daily as needed. Counseled patient against continuation of use of amphetamine and encouraged cessation. Blurry vision: Most likely in setting of hypertensive urgency. Resolving. Given high blood pressure, hyperlipidemia will start on baby aspirin 81 mg debbie y. Depression: Denies any suicidal ideation. Appreciate psych evaluation. For now continue with Lexapro 20 mg daily. ADHD Obesity Heparin 5000 every 12 hourly for DVT prophylaxis Cardiac diet Famotidine for PUD prophylaxis. Transfer to [facility]. Discharge plan: Plan to discharge within next 24 hours to home after adjusting antihypertensives further. Patient will need a PCP on discharge. Case tolu ramirez alerted. Attestations Medical Necessity Statement*: Requires further hospitalization for resolving hypertensive urgency/press syndrome while antihypertensives are further adjusted, significant depression Diagnoses PRES (posterior reversible encephalopathy syndrome) I67.83 Hypertension I10 Headache R51.9 Blurry vision, bilateral H53.8 Depression F32.A Obesity E66.9 Amphetamine abuse F15.10 Leukocytosis D72.829 Hyperlipidemia E78.5 Polycythemia D75.1
--- NOTE | 2023-03-13 12:30 | USCV_ITS ---
Aleks Andre Sr Age: 42 Gender: M : 1980 Exam Date: 03/13/2023 15:23 Ordering Phys: Jaren Camarena MD Technologist: CT Exam Location: [facility] [place] Indication: hypertension BP: 138 / 74 HR: 67 Rhythm: Sinus Technical Quality: Poor MEASUREMENTS (Male / Female) Normal Values 2D ECHO LVOT Diameter 2.7 cm LV Ejection Fraction MOD 2C 26.4 % LV Ejection Fraction 2C AL 29.9 % LA Diameter 4.2 cm Aorta at Sinotubular Diameter 2.4 cm IVC Diameter 1.7 cm M-MODE Aortic Annulus Diameter 3.3 cm LA Ao Ratio MM 1.5 MV E Point Septal Separation 0.5 cm DOPPLER AV Peak Velocity 139.0 cm/s LVOT Peak Velocity 111.0 cm/s AV Area Cont Eq vti 6.8 cm squared AV Area Cont Eq pk 4.5 cm squared MV Area PHT 4.0 cm squared Mitral E to A Ratio 1.0 MV E' Velocity 35.0 cm/s Mitral E to MV E' Ratio 9.1 Mitral E to LV E' Lateral Ratio 8.9 Mitral E to LV E' Septal Ratio 9.2 TV Peak E Velocity 83.0 cm/s Right Atrial Pressure 3.0 mmHg PV Peak Velocity 132.0 cm/s FINDINGS Left Ventricle Left ventricular cavity not well visualized. Normal left ventricular size, systolic function and wall thickness, with no regional wall motion abnormalities. Grade I/IV diastolic dysfunction (abnormal relaxation filling pattern), normal to mildly elevated filling pressures. Left ventricular ejection fraction is estimated at 60 %. Right Ventricle The right ventricle is normal in size and function. Right Atrium The right atrium is normal in size. Left Atrium Mildly increased left atrial size. Mitral Valve Structurally normal mitral valve without significant stenosis or prolapse. There is no mitral regurgitation. Aortic Valve Structurally normal aortic valve without significant sclerosis or stenosis. There is no aortic regurgitation. Tricuspid Valve Structurally normal tricuspid valve without significant stenosis or regurgitation. Pulmonary artery systolic pressure is normal. Pulmonic Valve Pulmonic valve not well visualized. Pericardium Normal pericardium without effusion. Aorta Normal ascending aorta dimension. IVC Inferior vena cava not visualized. CONCLUSIONS Left ventricular cavity not well visualized. Normal left ventricular size, systolic function and wall thickness, with no regional wall motion abnormalities. Grade I/IV diastolic dysfunction (abnormal relaxation filling pattern), normal to mildly elevated filling pressures. Left ventricular ejection fraction is estimated at 60 %. Mildly increased left atrial size. There are no prior echocardiogram studies to compare. Dr. Junior Pena MD (Electronically Signed) Final Date: 14 March 2023 08:02 S
--- NOTE | 2023-03-13 15:07 | PC.NURSE ---
Provider notified of currently blood pressures. Provider wants his 1500 dose of hydrazine held.
--- NOTE | 2023-03-13 16:48 | P.NPUPN_ITS ---
Subjective NPU Subjective: 42 year old with PRESS syndrome seen on Crisis unit with reports of use of methamphetamine for several years. Patient was sedated and reported desire to receive help for his addiction. He had reported years of Having symptoms of ADHD that had been untreated. He reported no history of rehabilitation for methamphetamine use. He had reported that he had This information from his family. He had reported problems with anxiety but denied having any suicidal thoughts Mental Status Exam MSE Comments: The patient was friendly and cooperative on interview but in and out of consciousness. ? He was lying in bed and an adequate historian. ? He was alert and oriented to person place time and situation.? His mood was described as better.? His affect was restricted in range.? He did not endorse thoughts of hurting himself or others.? His speech was normal in regards to rate rhythm and prosody.? He did not appear to be responding internal stimuli and there was no clear evidence of delusional thinking.? His attention span was variable.? He did not appear to be responding to internal stimuli, there was no evidence of delusional thinking. ? His recent remote memory were grossly intact.? His insight was limited.? His judgment appeared poor.? His impulse control appeared poor as well. Vitals/I&O/Wt Last Vital Signs Temp 98.0 F 03/13/23 16:00 Pulse 88 03/13/23 16:00 Resp 20 H 03/13/23 16:00 BP 131/72 03/13/23 16:00 Pulse Ox 96 03/13/23 16:00 O2 Del Method Room Air 03/13/23 16:00 03/13/23 03/13/23 03/13/23 06:59 14:59 22:59 Output Total 500 / 1650 525 / 525 Balance -500 / -358.416 -525 / -525 Weight last 48 hrs Weight 142.938 kg Data NPU 03/14/23 04:29 03/14/23 04:29 Micro: Microbiology 03/11/23 15:50 Urine Culture - Preliminary Urine,Clean Catch Microbiology 03/11/23 15:50 Urine,Clean Catch Urine Culture - Preliminary A&P Assessment and plan (1) Depression: (2) PRES (posterior reversible encephalopathy syndrome): (3) Amphetamine abuse: (4) ADHD (attention deficit hyperactivity disorder), combined type: Plan 42-year-old male with methamphetamine use for several years presenting with hypertension and PRES. Patient informed about the potential lethality of his situation and reported that he does not plan on leaving the hospital AGAINST MEDICAL ADVICE. I discussed potential options when leaving here and stabilized including some options for treatment including treatment for methamphetamine dependence along with alternative medications for treating ADHD as well. The patient was agreeable to the use of an antidepressant to target anxiety and depr ession. 1. Continue SSRI, recommend referral for methamphetamine abuse, patient does not wish for inpatient substance abuse treatment. Attestations NPU Medical Necessity Statement*: Inpatient psychiatric hospitalization not necessary at this time. Will follow. Coding Level of Care Code Acute Code for [facility] Diagnoses Depression F32.A PRES (posterior reversible encephalopathy syndrome) I67.83 Amphetamine abuse F15.10 ADHD (attention deficit hyperactivity disorder), combined type F90.2
[2023-03-13] MEDS: atorvastatin 40 mg Tablet 80 MG PO (21:40)
--- NOTE | 2023-03-13 22:27 | PC.NURSE ---
Hydralazine 50 mg [address] order. BP 103/57
[2023-03-14] MEDS: heparin 5,000 unit/mL INJ 1 mL 5000 UNIT SUBCUT (02:59)
[2023-03-14 03:54] VITALS: BP 144/87; PULSE 81; RESP 19; TEMP 36.8; O2SAT 95
[2023-03-14 04:49] VITALS: PULSE 70
[2023-03-14 04:57] LABS: Basophils # 0.1 10^3/uL (0.0-0.1); Basophils % 0.8 %; Eosinophils # 0.2 10^3/uL (0.0-0.8); Eosinophils % 1.5 %; Lymphocytes # 4.4 10^3/uL (0.8-4.8); Lymphocytes % 36.4 %; Mean Corpuscular HGB Conc 32.9 g/dL (30-55); Mean Corpuscular Hemoglobin 30.6 pg (27-33); Mean Corpuscular Volume 92.8 fl (82-101); Mean Platelet Volume 11.3 fL (7.4-10.4); Monocytes # 1.3 10^3/uL (0.2-0.9); Monocytes % 10.4 %; Neutrophils # 6.07 10^3/uL (1.8-7.7); Neutrophils % 50.6 %; Nucleated Red Blood Cells % 0 %; Platelet Count 220 10^3/cmm (157-399); Red Blood Count 5.17 10^6/uL (3.85-5.65); Red Cell Distribution Width 13.3 % (12.1-15.1); White Blood Count 11.99 10^3/uL (3.29-11.43)
[2023-03-14 05:14] LABS: Alanine Aminotransferase 62 U/L (0-41); Albumin Level 3.9 g/dL (3.5-5.2); Alkaline Phosphatase 65 U/L (40-130); Anion Gap 14.9 (5-19); Aspartate Amino Transferase 53 U/L (0-40); Blood Urea Nitrogen 21 mg/dL (6-20); Calcium 9.2 mg/dL (8.5-10.5); Carbon Dioxide 27 mmol/L (22-29); Chloride 103 mmol/L (98-107); Globulin 2.5 g/dL (1.3-4.6); Glomerular Filtration Rate 74.1 mL/min (90-130); Glucose 104 mg/dL (65-115); Osmolality Calculated 295 mOsm/kg (285-295); Potassium 3.9 mmol/L (3.5-5.1); Sodium 141 mmol/L (136-145); Total Bilirubin 0.5 mg/dL (0.15-1.2); Total Protein 6.4 g/dL (6.6-8.7)
[2023-03-14 07:29] VITALS: BP 166/89; PULSE 85; RESP 18; TEMP 37.1; O2SAT 95
[2023-03-14 09:06] VITALS: BP 166/89
[2023-03-14] MEDS: losartan 50 mg Tablet 100 MG PO (09:06)
[2023-03-14] MEDS: escitalopram 10 mg Tablet 20 MG PO (09:07)
[2023-03-14] MEDS: isosorbide mononitrate ER 60 mg Tablet PO (09:07)
[2023-03-14] MEDS: amlodipine 10 mg Tablet PO (09:07)
--- NOTE | 2023-03-14 09:07 | P.DS_ITS ---
Discharge Providers Date of Admission: 03/11/23 12:06 Date of Discharge: March 14, 2023 Attending Provider at Admission: Jaren Camarena MD Attending Provider at Discharge: Jaren Camarena MD Primary Care Provider: NOHEMI Pepper Diagnoses at Discharge Discharge Diagnosis (1) PRES (posterior reversible encephalopathy syndrome): Status: Acute (2) Hypertension: Status: Acute (3) Headache: Status: Acute (4) Blurry vision, bilateral: Status: Acute (5) Depression: Status: Acute (6) Obesity: Status: Acute (7) Amphetamine abuse: Status: Acute (8) Leukocytosis: Status: Acute (9) Hyperlipidemia: Status: Acute (10) Polycythemia: Status: Acute Reason for Visit Reason for Visit: [facility] Hospital Course Hospital Course Aleks Andre Sr is a 42 year old male with no significant past medical history and surgical history, chronic smoker who was brought into the ER today via EMS who were called by his children as he was found down on floor being confused.? On presentation to the ER he was found to have a systolic blood pressure of more than 250 and given altered mental status CT head was done which showed concerns for press syndrome hence internal medicine was consulted. On examination patient lying comfortably in bed in ER with family at bedside.? H e states he works at the [employer] daily.? He was at his baseline health till Saturday.? Since Saturday morning he has been getting more confused, feeling more depressed, feeling foggy in his brain with concerns for blurry vision since yesterday evening.? He states he does not follow-up with any primary care provider has not checked his blood pressure in a long time.? He is complaining of headache almost 2 times a week for which he takes Excedrin.? Headache is mostly global.? Not not associated with nausea or vomiting mostly but did have nausea and few episodes of vomiting few days ago which he thought is secondary to the [place] food he ate lately. (During that time his children were also not feeling well after eating the same food). Patient was admitted to the hospital further evaluation and management of hypertensive urgency with concerns for press syndrome on CT head and MRI done in the ER. He was admitted for aggressive blood pressure management. He was started on IV nicardipine. His blood pressure was difficult to control and required multiple oral antihypertensives while weaning the nicardipine drip. After blood pressures improved his symptoms of blurry vision also resolved. He was found to be positive for amphetamines. On admission patient was found to be significantly depressed without any concerns of suicidal or homicidal ideation for which Lexapro was started and psych consult was obtained. Patient was advised to follow-up as an outpatient for further management of depression. Patient was counseled in detail to avoid amphetamine abuse. He was counseled d etail to take his oral antihypertensives at home and maintain a blood pressure diary and follow-up with a primary care provider on set appointment. Physical Exam Narrative: General: No acute distress, AO x3, flat affect, HEENT: PERRLA, pupils bilaterally equal and reactive Chest: Normal vesicular breath sounds, no added sounds, equal good air entry bilaterally CVS: S1-S2 regular, no murmurs, no tachycardia, S4 heard, no gallops, no rubs Abdomen: Soft, nontender, no organomegaly, bowel sounds present Neuro: No focal deficits, no facial deformity, AO x3, power 5/5 in all limbs Psych: COMMON NORMALS: mental status grossly normal, cooperative, denies hallucinations, denies homicidal ideation and denies suicidal ideation MOOD & AFFECT: Yes depressed mood, Yes tearful and Yes Flat affect present THOUGHT PROCESS: No confused Discharge Data Studies Completed and Pending Completed Studies During Hospitalization Category Date Time Status CT head wo con* [id number] Stat Cat Scan 03/11/23 11:19 Completed XR chest 1V portable [id number] Stat Exams 03/11/23 11:19 Completed MR head wo con* [id number] Stat MRI 03/11/23 12:08 Completed CV renal doppler [id number] Routine Ultrasound 03/13/23 12:02 Completed CV. echo complete* [id number] Routine Ultrasound 03/13/23 12:30 Completed Pending at discharge Category Date Time Status Erythropoietin Routine Lab 03/12/23 04:30 Received [id number] Cascading Reflex Routine Lab 03/12/23 12:01 Received Urine Culture Stat Lab 03/11/23 15:50 Results Radiology Impressions Chest X-Ray 03/11/23 11:19 IMPRESSION: No lobar consolidation is appreciated.No acute cardiopulmonary changes are appreciated. Laboratory Results WBC 11.99 10^3/uL (3.29-11.43) H 03/14/23 04:29 RBC 5.17 10^6/uL (3.85-5.65) 03/14/23 04:29 Hgb 15.80 g/dL (11.27-16.99) 03/14/23 04:29 Hct 48.0 % (37-53) 03/14/23 04:29 MCV 92.8 fl (82-101) 03/14/23 04:29 MCH 30.6 pg (27-33) 03/14/23 04:29 MCHC 32.9 g/dL (30-55) 03/14/23 04:29 RDW 13.3 % (12.1-15.1) 03/14/23 04:29 Plt Count 220 10^3/cmm (157-399) 03/14/23 04:29 MPV 11.3 fL (7.4-10.4) H 03/14/23 04:29 Neut % (Auto) 50.6 % 03/14/23 04:29 Lymph % (Auto) 36.4 % 03/14/23 04:29 Woodson % (Auto) 10.4 % 03/14/23 04:29 Eos % (Auto) 1.5 % 03/14/23 04:29 Baso % (Auto) 0.8 % 03/14/23 04:29 Reticulocyte % (Auto) 2.2 % (0.5-2.0) H 03/12/23 04:30 Neut # (Auto) 6.07 10^3/uL (1.8-7.7) 03/14/23 04:29 Lymph # (Auto) 4.4 10^3/uL (0.8-4.8) 03/14/23 04:29 Woodson # (Auto) 1.3 10^3/uL (0.2-0.9) H 03/14/23 04:29 Eos # (Auto) 0.2 10^3/uL (0.0-0.8) 03/14/23 04:29 Baso # (Auto) 0.1 10^3/uL (0.0-0.1) 03/14/23 04:29 Nucleated RBC % (auto) 0 % 03/14/23 04:29 Nucleated RBCs # 0.0 /100WBC 03/14/23 04:29 Peripher Smr Path Cons Sent for review 03/12/23 04:30 Specimen Type Arterial 03/11/23 12:15 Sample Site Radial, left 03/11/23 12:15 ABG pH 7.39 (7.35-7.45) 03/11/23 12:15 ABG pCO2 36.4 mmHg (35-45) 03/11/23 12:15 ABG pO2 68.9 mmHg (80.0-100.0) L 03/11/23 12:15 ABG HCO3 21.9 mmol/L (22-26) L 03/11/23 12:15 ABG O2 Saturation 94.7 03/11/23 12:15 ABG Base Excess -2.4 mmol/L (-2.0-2.0) L 03/11/23 12:15 Mike Test Pos 03/11/23 12:15 A-a O2 Gradient 4.7 mmHg (5-10) L 03/11/23 12:15 Hematocrit 56.9 % (42-52) H 03/11/23 12:15 Hgb O2 Saturation 93.5 % (95-100) L 03/11/23 12:15 Carboxyhemoglobin 1.0 %THgb (0.4-20.1) 03/11/23 12:15 Methemoglobin 0.3 % (0.4-1.5) L 03/11/23 12:15 Total Hemoglobin 18.6 g/dL (14-18) H 03/11/23 12:15 Sodium 137.0 mmol/L (131-143) 03/11/23 12:15 Potassium 3.7 mmol/L (3.5-5.0) 03/11/23 12:15 Glucose 87.0 mg/dL (70-115) 03/11/23 12:15 Ionized Calcium 1.2 mmol/L (1.1-1.4) 03/11/23 12:15 O2 Delivery Device Room air 03/11/23 12:15 FiO2 21.0 % 03/11/23 12:15 [employer] Director ID Cak 03/11/23 12:15 Sodium 141 mmol/L (136-145) 03/14/23 04:29 Potassium 3.9 mmol/L (3.5-5.1) 03/14/23 04:29 Chloride 103 mmol/L (98-107) 03/14/23 04:29 Carbon Dioxide 27 mmol/L (22-29) 03/14/23 04:29 Anion Gap 14.9 (5-19) 03/14/23 04:29 BUN 21 mg/dL (6-20) H 03/14/23 04:29 Creatinine 1.1 mg/dL (0.7-1.2) 03/14/23 04:29 GFR Calculation 74.1 mL/min (90-130) L 03/14/23 04:29 Glucose 104 mg/dL (65-115) 03/14/23 04:29 POC Glucose 120 mg/dL (70-110) H 03/13/23 10:32 Estimat Average Glucose 100 03/12/23 04:30 Hemoglobin A1c 5.1 % (4.0-6.0) 03/12/23 04:30 Calculated Osmolality 295 mOsm/kg (285-295) 03/14/23 04:29 Lactic Acid 3.3 mmol/L (0.5-2.2) H 03/11/23 11:53 Lactic Acid (Sepsis) 2.1 mmol/L (0.5-2.2) 03/11/23 14:58 Calcium 9.2 mg/dL (8.5-10.5) 03/14/23 04:29 Phosphorus 2.3 mg/dL (2.5-4.5) L 03/12/23 04:30 Magnesium 2.2 mg/dL (1.7-2.3) 03/12/23 04:30 Iron 91 ug/dL (59-158) 03/11/23 11:00 TIBC 397 mcg/dl 03/11/23 11:00 % Saturation 22.9 % (20-50) 03/11/23 11:00 Unsat Iron Binding 306 ug/dL (112-347) 03/11/23 11:00 Total Bilirubin 0.5 mg/dL (0.15-1.2) 03/14/23 04:29 AST 53 U/L (0-40) H 03/14/23 04:29 ALT 62 U/L (0-41) H 03/14/23 04:29 Alkaline Phosphatase 65 U/L (40-130) 03/14/23 04:29 Total Protein 6.4 g/dL (6.6-8.7) L 03/14/23 04:29 Albumin 3.9 g/dL (3.5-5.2) 03/14/23 04:29 Globulin 2.5 g/dL (1.3-4.6) 03/14/23 04:29 Triglycerides 243 mg/dL (0-150) H 03/12/23 04:30 Cholesterol 259 mg/dL (0-200) H 03/12/23 04:30 LDL Cholesterol, Calc 175 mg/dL (50-129) H 03/12/23 04:30 HDL Cholesterol 35 mg/dL (60-100) L 03/12/23 04:30 LDL/HDL Ratio 5.00 RATIO (0.00-3.22) H 03/12/23 04:30 Cholesterol/HDL Ratio 7.40 mg/dL (1.0-5.00) H 03/12/23 04:30 Vitamin B12 440 pg/mL (232-1245) 03/11/23 11:00 Folate 17.4 ng/mL (4.5-32.2) 03/12/23 04:30 Procalcitonin 0.16 ng/mL (0-0.5) 03/11/23 11:00 TSH 1.44 uIU/mL (0.27-4.20) 03/11/23 11:00 Urine Color Yellow (Yellow) 03/11/23 15:50 Urine Appearance Sl hazy (CLEAR) A 03/11/23 15:50 Urine pH 5 (5-7) 03/11/23 15:50 Ur Specific [place] 1.025 (1.005-1.030) 03/11/23 15:50 Urine Protein 3+ (Negative) H 03/11/23 15:50 Urine Glucose (UA) Norm (Normal) 03/11/23 15:50 Urine Ketones Negative (Negative) 03/11/23 15:50 Urine Blood Neg (Negative) 03/11/23 15:50 Urine Nitrate Negative (Negative) 03/11/23 15:50 Urine Bilirubin Neg (Negative) 03/11/23 15:50 Urine Urobilinogen Norm mg/dL (Negative) 03/11/23 15:50 Ur Leukocyte Esterase Negative (Negative) 03/11/23 15:50 Urine RBC 0-4 /hpf (0-2) H 03/11/23 15:50 Urine WBC 15-25 /hpf (0-5) H 03/11/23 15:50 Ur Squamous Epith Cells 0-4 /hpf (0-5) H 03/11/23 15:50 Amorphous Sediment Not Reportable 03/11/23 15:50 Urine Bacteria Trace /hpf (NONE) 03/11/23 15:50 Urine Mucus 4+ /hpf 03/11/23 15:50 Urine Sperm 1+ /hpf 03/11/23 15:50 Salicylates 4.2 mg/dL (3-10) 03/11/23 11:00 Urine Opiates Screen Negative ng/mL (Negative) 03/11/23 15:50 Acetaminophen < 5.0 ug/mL (10-30) L 03/11/23 11:00 Ur Barbiturates Screen Negative ng/mL (Negative) 03/11/23 15:50 Ur Phencyclidine Scrn Negative ng/mL (Negative) 03/11/23 15:50 Ur Amphetamines Screen Positive ng/mL (Negative) H 03/11/23 15:50 U Benzodiazepines Scrn Negative ng/mL (Negative) 03/11/23 15:50 Urine Cocaine Screen Negative ng/mL (Negative) 03/11/23 15:50 U Marijuana (THC) Screen Positive ng/mL (Negative) H 03/11/23 15:50 Ethyl Alcohol < 10 mg/dL (0-10) 03/11/23 11:00 Influenza Type A Ag negative (Negative) 03/11/23 11:53 Influenza Type B Ag negative (Negative) 03/11/23 11:53 SARS-CoV-2 Ag (Rapid) negative (Negative) 03/11/23 11:53 Imaging Echo: Radiologist's impression: CONCLUSIONS ?Left ventricular cavity not well visualized. Normal left ?ventricular size, systolic function and wall thickness, with no ?regional wall motion abnormalities. Grade I/IV diastolic ?dysfunction (abnormal relaxation filling pattern), normal to ?mildly elevated filling pressures. Left ventricular ejection ?fraction is estimated at 60 %. ?Mildly increased left atrial size. ?There are no prior echocardiogram studies to compare. ?Dr. Junior Pena MD ?(Electronically Signed) ?Final Date:? ? ? 14 March 2023 ? 08:02 Vitals Last Vital Signs Temp 98.7 F 03/14/23 07:29 Pulse 85 03/14/23 07:29 Resp 18 03/14/23 07:29 BP 166/89 03/14/23 07:29 Pulse Ox 95 03/14/23 07:29 O2 Del Method Room Air 03/14/23 07:29 Discharge Plan Discharge Patient Disposition: Home Condition: Stable Prescriptions: New losartan 50 mg Tablet 100 mg PO DAILY 30 Days Qty: 60 0RF atorvastatin 40 mg Tablet 80 mg PO BEDTIME 30 Days Qty: 60 0RF carvedilol 6.25 mg Tablet 6.25 mg PO BID Qty: 60 0RF chlorthalidone 25 mg Tablet 12.5 mg PO DAILY 30 Days Qty: 15 0RF aspirin 81 mg Tablet,Delayed Release (Dr/Ec) 81 mg PO DAILY 30 Days Qty: 30 0RF isosorbide mononitrate 60 mg Tablet Extended Release 24 Hr 60 mg PO BID 30 Days Qty: 60 0RF amlodipine 10 mg Tablet 10 mg PO DAILY 30 Days Qty: 30 0RF escitalopram oxalate 10 mg Tablet 20 mg PO DAILY 30 Days Qty: 60 0RF Continued Excedrin Migraine 250-250-65 mg Tablet 2 tab PO Q6H PRN (Reason: Pain) Discharge Orders: Discharge Order (Routine); Ordered 03/14/23 Ordered By: Jaren Camarena Referrals: Barb Cardenas FNP [Primary Care Provider] - (Please call [facility] at [phone] to get established and schedule an appointment with a provider. Thank you.) Rodney Miller MD [Physician] - 03/19/23 10:45 am Discharge Diet: Cardiac Discharge Activity: Resume usual activity and Increase activity as tolerated Patient Instructions: Aspirin (By mouth) (Araceli Extra Strength, Araceli Aspirin Children's,..., Chlorthalidone (By mouth) (Taliton), Amlodipine (By mouth) (Hypertenipine-2.5, Norvasc, Norliqva), Losartan (By mouth) (Cozaar), Isosorbide Mononitrate (By mouth) (Imdur, Imdur ER, Ismo), Atorvastatin (By mouth) (Lipitor, Atorvaliq), Carvedilol (By mouth) (Coreg, Coreg CR, Hypertenevide- 12.5), Escitalopram (By mouth) (Lexapro), Hyponatremia (ED), Benzodiazepine Use Disorder (ED), Dementia (ED), Non-diabetic Hypoglycemia (ED), Hypoglycemia in a Person with Diabetes (ED), Concussion (ED), Alcohol Intoxication (ED), Subarachnoid Hemorrhage (GEN), Altered Mental Status (ED), Opioid Safety Activity Restrictions/Additional Instructions: You will be on multiple new medications for high blood pressure. Please make sure you take your medications as prescribed. Please try to avoid using meth. Please follow-up with a primary care provider on set appointment.Please check your blood pressure daily at home and maintain a blood pressure diary. Follow- up with a primary care provider review blood pressure diary for further adjustment of antihypertensives. Please follow-up with behavioral health clinic Discharge Attestations Time Spent in Discharge Care*: greater than 30 min Specific Discharge Activities: educating patient, educating and/or supporting family/caregiver, discussing with pcp/other providers, discussing with case ma meghan/social workers/dc planners, documenting/other paperwork and evaluating patient/reviewing data Status at Discharge: Cognitive status at discharge: cognitively intact , Behavioral status at discharge: cooperative , Functional status at discharge: independent ambulation , Overall status at discharge: patient is back to baseline Quality Metrics Clinical Quality Measures [ No reported AMI, CVA or VTE this stay] Coding Level of Care Code 45418 Total time (in minutes) for Discharge: 50 Diagnoses PRES (posterior reversible encephalopathy syndrome) I67.83 Hypertension I10 Headache R51.9 Blurry vision, bilateral H53.8 Depression F32.A Obesity E66.9 Amphetamine abuse F15.10 Leukocytosis D72.829 Hyperlipidemia E78.5 Polycythemia D75.1
[2023-03-14] MEDS: aspirin 81 mg EC Tablet PO (09:08)
[2023-03-14] MEDS: chlorthalidone 25 mg Tablet 12.5 MG PO (09:08)
[2023-03-14] MEDS: carvedilol 6.25 mg Tablet PO (09:08)
[2023-03-14] MEDS: famotidine 20 mg Tablet PO (09:08)
[2023-03-14 11:25] VITALS: BP 134/68; PULSE 72; RESP 18; TEMP 36.8; O2SAT 94
[2023-03-14 13:04] VITALS: BP 134/68; PULSE 72; RESP 18; TEMP 36.8; O2SAT 94
[2023-03-21 22:25] LABS: CALR Exon 9 Mutation NOT DETECTED (NOT DETECTED); CSF3R Exon 14/17 Mutation NOT DETECTED (NOT DETECTED); JAK2 Exon 12 Mutation NOT DETECTED (NOT DETECTED); JAK2 V617 Clinical Indication NG; JAK2 V617 Mutation NOT DETECTED (NOT DETECTED); JAK2 V617 Specimen Source NG; MPL Exon 12 Mutation NOT DETECTED (NOT DETECTED)
== END 2023-03-14 14:17 | disposition home or self-care (01) | DRG 304 ==
LOC: ER 12:10 → ICU 12:20 → CSU 03-13 12:18
PROVIDERS: Admitting Provider Student in an Organized Health Care Education/Training Program; Emergency Provider Emergency Medicine; PCP Nurse Practitioner; Visit Provider Student in an Organized Health Care Education/Training Program
DX: I16.0 Hypertensive urgency (principal); I67.83 Posterior reversible encephalopathy syndrome; F15.13 Other stimulant abuse with withdrawal; F17.210 Nicotine dependence, cigarettes, uncomplicated; F32.A Depression, unspecified; E66.9 Obesity, unspecified; Z68.39 Body mass index [BMI] 39.0-39.9, adult; E78.5 Hyperlipidemia, unspecified; G47.33 Obstructive sleep apnea (adult) (pediatric); D75.1 Secondary polycythemia; F41.9 Anxiety disorder, unspecified; F90.9 Attention-deficit hyperactivity disorder, unspecified type
CPT/HCPCS: 36415; 36416; 36600; 70450; 70551; 71045; 80051; 80053; 80061; 80306; 80307; 80503; 81001; 81270; 81279; 81339; 81479; 82330; 82607; 82668; 82746; 82805; 82962; 83036; 83540; 83550; 83605; 83735; 84100; 84145; 84443; 85025; 85045; 87086; 87426; 87804; 93005; 93306; 93975; 94664; 96365; 96366; 96372; 99285; A9270; J1644; J3490; J7030

== ENCOUNTER 2023-04-21 19:24 | Emergency (ER) | payer SELFPAY ==
[2023-04-21 19:30] VITALS: BP 179/128; PULSE 82; RESP 17; TEMP 36.4; O2SAT 95; BMI 37.5
--- NOTE | 2023-04-21 19:50 | CTR_ITS ---
PROCEDURE INFORMATION: Exam: CT Abdomen And Pelvis Without Contrast Exam date and time: 04/21/2023 8:23 PM Age: 43 years old Clinical indication: Abdominal pain; Right; Patient HX: RT flank pain with dysuria. ; Additional info: R flank pain TECHNIQUE: Imaging protocol: Computed tomography of the abdomen and pelvis without contrast. Axial, coronal and sagittal reformatted images were created and reviewed. Radiation optimization: All CT scans at this facility use at least one of these dose optimization techniques: automated exposure control; mA and/or kV adjustment per patient size (includes targeted exams where dose is matched to clinical indication); or iterative reconstruction. REPORTING DATA: Count of CT and Cardiac NM exams in prior 12 months: This patient has received [address] and 0 known cardiac nuclear medicine studies in the 12 months prior to the current study. COMPARISON: CR XR chest 1V portable [id number] 03/11/2023 11:35 AM RADIATION DOSE METRICS: Total DLP (mGy-cm): 1283.93 FINDINGS: Diaphragm: Elevated left hemidiaphragm. Liver: Mild hepatomegaly. Diffuse hepatic steatosis. Gallbladder and bile ducts: Mild gallbladder distention without radiodense gallstones. Pancreas: Unremarkable. Spleen: Unremarkable. Adrenal glands: Normal. No mass. Kidneys and ureters: No mass. No radiodense calculi. No hydronephrosis. Stomach and bowel: No bowel wall thickening. No obstruction. No pneumatosis. Appendix: Normal. Intraperitoneal space: No free fluid. No organized fluid collection. No free air. Vasculature: Unremarkable. No aneurysm. Lymph nodes: No pathologically enlarged lymph nodes. Urinary bladder: Unremarkable as visualized. Reproductive: Unremarkable. Bones/joints: No acute osseous abnormality. Osteopenia. Degenerative changes. Soft tissues: Small, fat containing umbilical and left inguinal hernias. CT/CT kidney stone [id number] IMPRESSION: 1. Limited noncontrast examination without CT evidence of acute intra-abdominal or pelvic pathology. 2. Additional findings, as above.
--- NOTE | 2023-04-21 19:50 | ECG_ITS ---
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 Measurements Intervals Iselin Rate: 63 P: -23 IA: 153 QRS: 39 QRSD: 101 T: 72 QT: 404 QTc: 414 Interpretive Statements SINUS RHYTHM NONSPECIFIC T-WAVE ABNORMALITY Compared to ECG 03/11/2023 11:25:32 Ventricular premature complex(es) no longer present T-wave abnormality still present Electronically Signed On 04-22-2023 8:09:34 DENTAL CERAMIST by Liyah Copeland M.D. [email or web address]
--- NOTE | 2023-04-21 19:53 | ED_ITS ---
HPI - Abdominal Pain General: Chief Complaint: Abdominal Pain Stated Complaint: ABD Pain Time Seen by Provider: 04/21/23 19:32 History of Present Illness: 43-year-old male with a history of hypertension. He presents with right-sided flank pain that started earlier today. He states that he had an episode on Saturday in [facility], that was severe, but then seemed to self resolved. Today the pain came back. It is episodic in nature. It radiates from his right lower quadrant to his back. He states that he has had some trouble with urination. No davis blood in the urine. No fever. No vomiting. Some nausea. No history of abdominal surgery. He was admitted last month for hypertensive emergency, and now is on multiple antihypertensives. He says that he is taken these today, except for his evening dose of carvedilol. He has significant hypertension in the ER presumably from pain. Associated Symptoms: Reports nausea; Denies chills, constipation, dysuria and fever(s) Review of Systems Const: Denies: fever(s) or chills Eyes: Denies: change in vision ENMT: Denies: throat pain Card: Denies: chest pain or palpitations Resp: Denies: dyspnea, productive cough or non-productive cough GI: Reports: abdominal pain and nausea; Denies: constipation : Reports: flank pain and difficulty urinating; Denies: dysuria Musc: Reports: back pain PFSH ED PFSH: Medical History ADHD (attention deficit hyperactivity disorder), combined type Hyperlipidemia Hypertension Moderate major depression Obesity (BMI 35.0-39.9 without comorbidity) PRES (posterior reversible encephalopathy syndrome) Surgical History No pertinent past surgical history Family History Other Dementia Diabetes Hyperlipidemia Hypertension Lung disease Stroke Denies family history of CAD (coronary artery disease) Clotting disorder Psychiatric illness Chronic kidney disease (CKD) Anesthesia complication Bleeding disorder Cancer Social History Smoking and tobacco/nicotine status: former use of tobacco/nicotine Alcohol intake: never Substance/Drug Use: never Adopted: No Caregiver/support person: Yes Lives independently: Yes Household members: children Housing: House Marital status: Current occupational status: employed 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 [employer] Special lorraine needs: No Agree to transfusion: Yes Physical Exam Const: COMMON NORMALS: no acute distress GENERAL APPEARANCE: lethargic and ill appearing; not frail appearing NUTRITIONAL APPEARANCE: obese ORIENTATION/CONSCIOUSNESS: Yes awake, Yes oriented to person, Yes oriented to place, Yes oriented to time and Yes lethargic HENMT: COMMON NORMALS: normocephalic, atraumatic and Normal external nose present HEAD & SCALP: normocephalic and atraumatic FACE & SINUS: normal facial exam and face symmetric NOSE: Normal external nose present Eye: COMMON NORMALS: Equal, round and reactive pupils present and EOMs intact bilaterally PUPIL: Yes Equal, round and reactive pupils present Neck/C-Spine: GENERAL: Yes trachea midline Chest: CHEST: Yes Symmetrical chest wall rise Resp: COMMON NORMALS: normal respiratory effort, No retractions, No use of accessory muscles and clear to auscultation bilaterally AUSCULTATION: clear to auscultation bilaterally Cardio: COMMON NORMALS: regular rate and regular rhythm RATE: regular rate RHYTHM: regular rhythm GI: COMMON NORMALS: Normal to inspection, nondistended, normoactive bowel sounds present : BLADDER/KIDNEY EXAM: Yes CVA tenderness Back/Pelvis: GENERAL BACK: Yes CVA tenderness CVA tenderness: right Extremity: COMMON NORMALS: no pedal edema Neuro: STEPHEN COMA SCALE: document GCS findings Stephen coma scale eye opening: Spontaneous Stephen coma scale verbal response: Orientated Stephen coma scale motor response: Obey commands Stephen coma scale total score: 15 SENSORIUM/ORIENTATION: Yes oriented to person, Yes oriented to place, Yes oriented to time and Yes lethargic SENSORY EXAM: Yes extremities (intact) Psych: COMMON NORMALS: speech normal SPEECH: Yes normal speech Skin: COMMON NORMALS: no rashes or lesions noted GENERAL SKIN EXAM: no rashes or lesions noted Course Vital Signs: Vital signs: Vital Signs Temperature 97.6 F 04/21/23 19:30 Pulse Rate 73 04/21/23 21:54 Respiratory Rate 21 H 04/21/23 20:05 Blood Pressure 150/111 04/21/23 21:54 Pulse Oximetry 99 04/21/23 21:54 Oxygen Delivery Me thod Room Air 04/21/23 21:54 MDM - Abdominal Pain Medical Decision Making 43-year-old male with right flank pain, some lethargy. He looks improved after fluid, pain medication, decreasing his blood pressure. His CBC is normal. His BMP is essentially normal. His CRP is 3. Urinalysis shows 2+ urine ketones, 2+ leukocyte esterase and 10-15 whites. Only 0-4 squamous cells. Urine drug screen positive for marijuana. He is also positive for opiates, but they were given prior to his urinalysis. CT of the belly shows a normal appendix. There is no hydronephrosis or stone noted. With blood in the urine, evidence of infection, he may have passed a stone earlier today. He looks improved clinically. Family requests CT of the head, because he had some transient confusion following a fall and hitting his head earlier today. This is not completed as of yet. IV Rocephin for the urinary tract infection. He will go home on antibiotics. Outpatient follow-up. He will need repeat urine testing to ensure urinalysis is cleared. Lab Data 04/21/23 19:59 04/21/23 19:59 Labs/Radiology: Radiology Impressions Abdomen/Pelvis CT 04/21/23 19:50 IMPRESSION: 1. Limited noncontrast examination without CT evidence of acute intra-abdominal or pelvic pathology. 2. Additional findings, as above. Head CT 04/21/23 21:14 IMPRESS[address]: 1[address] No CT evidence of acute intracranial pathology. 2. Additional findings, as above. Laboratory Results WBC 10.54 10^3/uL (3.29-11.43) 04/21/23 19:59 RBC 5.34 10^6/uL (3.85-5.65) 04/21/23 19:59 Hgb 16.40 g/dL (11.27-16.99) 04/21/23 19:59 Hct 48.9 % (37-53) 04/21/23 19:59 MCV 91.6 fl (82-101) 04/21/23 19:59 MCH 30.7 pg (27-33) 04/21/23 19:59 MCHC 33.5 g/dL (30-55) 04/21/23 19:59 RDW 12.6 % (12.1-15.1) 04/21/23 19:59 Plt Count 231 10^3/cmm (157-399) 04/21/23 19:59 MPV 10.6 fL (7.4-10.4) H 04/21/23 19:59 Neut % (Auto) 56.3 % 04/21/23 19:59 Lymph % (Auto) 31.9 % 04/21/23 19:59 Thomas % (Auto) 7.8 % 04/21/23 19:59 Eos % (Auto) 2.8 % 04/21/23 19:59 Baso % (Auto) 0.9 % 04/21/23 19:59 Neut # (Auto) 5.94 10^3/uL (1.8-7.7) 04/21/23 19:59 Lymph # (Auto) 3.4 10^3/uL (0.8-4.8) 04/21/23 19:59 Thomas # (Auto) 0.8 10^3/uL (0.2-0.9) 04/21/23 19:59 Eos # (Auto) 0.3 10^3/uL (0.0-0.8) 04/21/23 19:59 Baso # (Auto) 0.1 10^3/uL (0.0-0.1) 04/21/23 19:59 Nucleated RBC % (auto) 0 % 04/21/23 19:59 Nucleated RBCs # 0.0 /100WBC 04/21/23 19:59 Sodium 134 mmol/L (136-145) L 04/21/23 19:59 Potassium 3.8 mmol/L (3.5-5.1) 04/21/23 19:59 Chloride 100 mmol/L (98-107) 04/21/23 19:59 Carbon Dioxide 25 mmol/L (22-29) 04/21/23 19:59 Anion Gap 12.8 (5-19) 04/21/23 19:59 BUN 16 mg/dL (6-20) 04/21/23 19:59 Creatinine 0.9 mg/dL (0.7-1.2) 04/21/23 19:59 GFR Calculation 93.0 mL/min (90-130) 04/21/23 19:59 Glucose 108 mg/dL (65-115) 04/21/23 19:59 Calculated Osmolality 280 mOsm/kg (285-295) L 04/21/23 19:59 Calcium 9.1 mg/dL (8.5-10.5) 04/21/23 19:59 Total Bilirubin 0.9 mg/dL (0.15-1.2) 04/21/23 19:59 AST 50 U/L (0-40) H 04/21/23 19:59 ALT 69 U/L (0-41) H 04/21/23 19:59 Alkaline Phosphatase 78 U/L (40-130) 04/21/23 19:59 C-Reactive Protein 3.0 mg/L (0.0-4.9) 04/21/23 19:59 Total Protein 7.3 g/dL (6.6-8.7) 04/21/23 19:59 Albumin 4.2 g/dL (3.5-5.2) 04/21/23 19:59 Globulin 3.1 g/dL (1.3-4.6) 04/21/23 19:59 Lipase 46 U/L (13-60) 04/21/23 19:59 Urine Color Yellow (Yellow) 04/21/23 20:40 Urine Appearance Clear (CLEAR) 04/21/23 20:40 Urine pH 5 (5-7) 04/21/23 20:40 Ur Specific Roark 1.020 (1.005-1.030) 04/21/23 20:40 Urine Protein Trace (Negative) 04/21/23 20:40 Urine Glucose (UA) Norm (Normal) 04/21/23 20:40 Urine Ketones 1+ (Negative) H 04/21/23 20:40 Urine Blood 2+ (Negative) H 04/21/23 20:40 Urine Nitrate Negative (Negative) 04/21/23 20:40 Urine Bilirubin Neg (Negative) 04/21/23 20:40 Urine Urobilinogen Neg mg/dL (Negative) 04/21/23 20:40 Ur Leukocyte Esterase 2+ (Negative) H 04/21/23 20:40 Urine RBC 5-10 /hpf (0-2) H 04/21/23 20:40 Urine WBC 10-15 /hpf (0-5) H 04/21/23 20:40 Ur Squamous Epith Cells 0-4 /hpf (0-5) H 04/21/23 20:40 Amorphous Sediment 2+ /hpf 04/21/23 20:40 Urine Bacteria Trace /hpf (NONE) 04/21/23 20:40 Urine Mucus 3+ /hpf 04/21/23 20:40 Urine Opiates Screen Positive ng/mL (Negative) H 04/21/23 20:40 Ur Barbiturates Screen Negative ng/mL (Negative) 04/21/23 20:40 Ur Phencyclidine Scrn Negative ng/mL (Negative) 04/21/23 20:40 Ur Amphetamines Screen Negative ng/mL (Negative) 04/21/23 20:40 U Benzodiazepines Scrn Negative ng/mL (Negative) 04/21/23 20:40 Urine Cocaine Screen Negative ng/mL (Negative) 04/21/23 20:40 U Marijuana (THC) Screen Positive ng/mL (Negative) H 04/21/23 20:40 All radiology interpretation(s) finalized by discharge Discharge Plan Discharge Patient Disposition: Home Clinical Impression: Urinary tract infection Condition: Stable Prescriptions: New cefdinir 300 mg capsule 300 mg PO BID 7 Days Qty: 14 0RF No Action carvedilol 6.25 mg tablet 6.25 mg PO BID Qty: 180 1RF isosorbide mononitrate 60 mg tablet extended release 24 hr 60 mg PO BID 90 Days Qty: 180 1RF losartan 50 mg tablet 100 mg PO DAILY 90 Days Qty: 180 1RF venlafaxine [Effexor XR] 37.5 mg capsule,extended release 24hr 37.5 mg PO DAILY Qty: 30 0RF Excedrin Migraine 250-250-65 mg Tablet 2 tab PO Q6H PRN (Reason: Pain) Discharge Orders: Discharge ED (Routine); Ordered 04/21/23 Ordered By: Enio Mcclendon Referrals: Rodney Miller MD [Primary Care Provider] - 4-7 days Patient Instructions: Urinary Tract Infection in Men (ED), Opioid Safety, Pain Management Activity Restrictions/Additional Instructions: Monitor for fever closely. Return for fever despite 2-3 doses of antibiotics, worsening mental status, worsening pain, vomiting liquids or medications, other concerning symptoms. Be sure to take your scheduled blood pressure medicines when you get home. Coding Level of Care Code ED Forming Department Supervisor for Francois Ruiz
[2023-04-21] MEDS: sodium chloride 0.9% 500 ML IV (20:04)
[2023-04-21] MEDS: ondansetron 2 mg/ML SDV 2 mL 4 MG IVP (20:04)
[2023-04-21 20:05] VITALS: RESP 21; O2SAT 97
[2023-04-21 20:05] LABS: Basophils # 0.1 10^3/uL (0.0-0.1); Basophils % 0.9 %; Eosinophils # 0.3 10^3/uL (0.0-0.8); Eosinophils % 2.8 %; Hematocrit 48.9 % (37-53); Lymphocytes # 3.4 10^3/uL (0.8-4.8); Lymphocytes % 31.9 %; Mean Corpuscular HGB Conc 33.5 g/dL (30-55); Mean Corpuscular Hemoglobin 30.7 pg (27-33); Mean Corpuscular Volume 91.6 fl (82-101); Mean Platelet Volume 10.6 fL (7.4-10.4); Monocytes # 0.8 10^3/uL (0.2-0.9); Monocytes % 7.8 %; Neutrophils # 5.94 10^3/uL (1.8-7.7); Neutrophils % 56.3 %; Nucleated Red Blood Cells % 0 %; Platelet Count 231 10^3/cmm (157-399); Red Blood Count 5.34 10^6/uL (3.85-5.65); Red Cell Distribution Width 12.6 % (12.1-15.1); White Blood Count 10.54 10^3/uL (3.29-11.43)
[2023-04-21] MEDS: morphine 4 mg/mL SDV 1 mL IVP (20:05)
[2023-04-21] MEDS: metoprolol tartrate 1 mg/1 mL SDV 5 mL 5 MG IVP (20:07)
[2023-04-21 20:21] VITALS: BP 139/86; PULSE 68; O2SAT 93
[2023-04-21 20:23] LABS: Alanine Aminotransferase 69 U/L (0-41); Albumin Level 4.2 g/dL (3.5-5.2); Alkaline Phosphatase 78 U/L (40-130); Anion Gap 12.8 (5-19); Aspartate Amino Transferase 50 U/L (0-40); Blood Urea Nitrogen 16 mg/dL (6-20); Calcium 9.1 mg/dL (8.5-10.5); Carbon Dioxide 25 mmol/L (22-29); Chloride 100 mmol/L (98-107); Globulin 3.1 g/dL (1.3-4.6); Glucose 108 mg/dL (65-115); Lipase 46 U/L (13-60); Osmolality Calculated 280 mOsm/kg (285-295); Potassium 3.8 mmol/L (3.5-5.1); Sodium 134 mmol/L (136-145); Total Bilirubin 0.9 mg/dL (0.15-1.2); Total Protein 7.3 g/dL (6.6-8.7)
[2023-04-21 20:51] VITALS: BP 128/97; PULSE 71; O2SAT 97
[2023-04-21 20:55] LABS: Protein Urine Trace (Negative); Urine Appearance Clear (CLEAR); Urine Color Yellow (Yellow); pH Urine 5 (5-7)
[2023-04-21 20:56] LABS: Add Urine Culture? Yes; Add Urine Microscopic? YES; Amorphous Sediment Urine 2+ /hpf; Bacteria Urine TRACE /hpf; Bilirubin Urine Neg (Negative); Blood Urine 2+ (Negative); Glucose Urine UA Norm (Normal); Ketones Urine 1+ (Negative); Leukocyte Esterase Urine 2+ (Negative); Mucus Urine 3+ /hpf; Nitrate Urine Negative (Negative); Squamous Epithelial Cell Urine 0-4 /hpf (0-5); Urobilinogen Urine Neg (Negative)
[2023-04-21 20:57] LABS: Amphetamines Screen Urine Negative (Negative); Barbiturates Screen Urine Negative (Negative); Benzodiazepines Screen Urine Negative (Negative); Cocaine Screen Urine Negative (Negative); Opiate Screen Urine Positive (Negative); PCP Screen Urine Negative (Negative); THC Screen Urine Positive (Negative)
[2023-04-21] MEDS: cefTRIAXone 1,000 MG in sodium chloride 0.9% (plus) 50 ML 100 MG IV (21:13)
--- NOTE | 2023-04-21 21:14 | CTR_ITS ---
PROCEDURE INFORMATION: Exam: CT Head Without Contrast Exam date and time: 04/21/2023 9:20 PM Age: 43 years old Clinical indication: Injury or trauma; Blunt trauma (contusions or hematomas); Altered mental status/memory loss; Confusion or disorientation; Patient HX: Family states PT had an episode of confusion earlier today with a fall striking head. PT recently evaluated for hypertensive emergency. TECHNIQUE: Imaging protocol: Computed tomography of the head without contrast. Axial, coronal and sagittal reformatted images were created and reviewed. Radiation optimization: All CT scans at this facility use at least one of these dose optimization techniques: automated exposure control; mA and/or kV adjustment per patient size (includes targeted exams where dose is matched to clinical indication); or iterative reconstruction. REPORTING DATA: Count of CT and Cardiac NM exams in prior 12 months: This patient has received [address] and 0 known cardiac nuclear medicine studies in the 12 months prior to the current study. COMPARISON: MR head wo con* [id number] 03/11/2023 1:39 PM RADIATION DOSE METRICS: Total DLP (mGy-cm): 1098.08 FINDINGS: Brain: No CT evidence of acute intracranial hemorrhage or acute territorial infarction. No significant mass effect or midline shift. Basal cisterns patent. Cerebral ventricles: Normal in size and configuration. Paranasal sinuses: Mild ethmoid mucosal thickening. No air-fluid levels. Mastoid air cells: Grossly unremarkable. Bones/joints: No acute osseous abnormality. Soft tissues: Grossly unremarkable. CT/CT head wo con* [id number]: 1[address] No CT evidence of acute intracranial pathology. 2. Additional findings, as above.
--- NOTE | 2023-04-21 21:52 | PC.NURSE ---
ROCEPHIN INFUSION FINISHED AT 2150. ENDED INFUSION PREMATURELY IN EHR MISTAKENLY.
[2023-04-21 21:54] VITALS: BP 150/111; PULSE 73; O2SAT 99
== END 2023-04-21 22:05 | disposition home or self-care (01) ==
PROVIDERS: Emergency Provider Emergency Medicine; PCP Family Medicine
DX: N39.0 Urinary tract infection, site not specified (principal); Z87.891 Personal history of nicotine dependence; E78.5 Hyperlipidemia, unspecified; I10 Essential (primary) hypertension
CPT/HCPCS: 70450; 74176; 80053; 80306; 81001; 83690; 85025; 86140; 87086; 93005; 96361; 96374; 96375; 99285; J0696; J2270; J2405; J3490; J7040